=== PATIENT | male | born 1940 | race Caucasian/White ===

== ENCOUNTER → 2024-05-31 | Outpatient (CLI) | payer MEDICARE, SELFPAY ==
--- NOTE | 2024-05-31 14:00 | ECHOD_ITS ---
Reason For Study: CHF Procedure This was a 2D Doppler, Color Flow transthoracic echocardiogram. The study was technically difficult. Exam performed in department. Left Ventricle Normal LV size. Left ventricular systolic function is normal. The left ventricular ejection fraction is 60 %. Stage 1 diastolic dysfunction. No regional wall motion abnormalities noted. Right Ventricle Normal RV size. ICD or pacer leads identified within the right ventricle. Normal systolic function. Atria Normal left atrium. Normal right atrium. Mitral Valve Bileaflet diffuse mitral valve thickening. Mild-Moderate (1-2+) eccentric mitral valve insufficiency. Tricuspid Valve Normal tricuspid valve. Mild (1+) tricuspid valve insufficiency. Pulmonary artery systolic pressure is 26 mmHg. Aortic Valve Trisinus/trileaflet aortic valve. Pulmonic Valve Normal pulmonic valve. Great Vessels Normal aortic root. The pulmonary artery is normal size. Normal inferior vena cava. Pericardium/Pleural No pericardial effusion. MMode/2D Measurements & Calculations RVDd: 3.5 cm LVOT diam: 2.0 cm Ao root diam: 3.3 cm LVOT area: 3.0 cm2 LAV(MOD-bp): 51.1 ml SV(MOD-sp4): 69.9 ml LVAd ap4: 35.9 cm2 LAV(MOD-bp) Indexed: 25.7 ml/m2 LVLd ap4: 8.4 cm LAV(MOD-sp2): 44.2 ml EDV(MOD-sp4): 126.5 ml LAV(MOD-sp4): 46.9 ml EDV(sp4-el): 131.0 ml LVAs ap4: 21.4 cm2 LVLs ap4: 6.8 cm ESV(MOD-sp4): 56.6 ml ESV(sp4-el): 57.1 ml EF(MOD-sp4): 55.3 % EF(sp4-el): 56.4 % SV(sp4-el): 73.9 ml LA A4 area: 18.3 cm2 LA dimension(2D): 3.4 cm TAPSE: 2.0 cm RA A4 area: 16.9 cm2 Time Measurements MV dec time: 0.18 sec Doppler Measurements & Calculations MV E max driss: 70.8 cm/sec Lat Peak E' Driss: 10.0 cm/sec Med Peak E' Driss: 8.9 cm/sec MV A max driss: 71.7 cm/sec E/E' lat: 7.1 E/E' med: 8.0 MV E/A: 0.99 Ao V2 max: 175.6 cm/sec LV V1 max: 86.9 cm/sec SV(LVOT): 43.4 ml Ao max P.3 mmHg LV V1 max P.0 mmHg Ao V2 mean: 121.9 cm/sec LV V1 mean P.5 mmHg Ao mean P.8 mmHg LV V1 mean: 54.9 cm/sec Ao V2 VTI: 27.3 cm LV V1 VTI: 14.3 cm AV (velocity ratio): 0.52 JEANNINE(I,D): 1.6 cm2 JEANNINE(V,D): 1.5 cm2 PA V2 max: 107.9 cm/sec TR max driss: 239.2 cm/sec TR max P.9 mmHg ECHO/Echo Complete Interpretation Summary Normal LV size. Left ventricular systolic function is normal. The left ventricular ejection fraction is 60 %. Mild-Moderate (1-2+) eccentric mitral valve insufficiency. Stage 1 diastolic dysfunction. Ordering Physician: Jorge uLis Curtis Referring Physician: ELI ACOSTA Performed By: Alexa Geiger RDCS
== END | disposition home or self-care (01) ==
LOC: CVS 13:59
PROVIDERS: PCP Internal Medicine; Referring Provider Internal Medicine Cardiovascular Disease; Visit Provider Internal Medicine Cardiovascular Disease
DX: I35.0 Nonrheumatic aortic (valve) stenosis (principal); I42.0 Dilated cardiomyopathy
CPT/HCPCS: 93306

== ENCOUNTER 2024-08-31 12:56 | Emergency (ER) | payer MEDICARE, SELFPAY ==
[2024-08-31] VITALS (14 sets, daily range): BP systolic 86–122; BP diastolic 33–62; PULSE 63–98; RESP 10–21; TEMP 36.6–36.9; O2SAT 61–99; BMI 22.1
--- NOTE | 2024-08-31 13:18 | CT_ITS ---
STUDY: CT ABDOMEN AND PELVIS WITH CONTRAST REASON FOR EXAM: Male, 84 years old. LLQ pain N/V/D X1 WEEK RADIATION DOSAGE (If Supplied By Facility): CTDIvol = ( 18.74 ) mGy, DLP = ( 2063.90 ) mGycm TECHNIQUE: Transaxial images were obtained from the dome of the diaphragm to the symphysis pubis without oral contrast. ml of 100mL Isovue-300 contrast was administered. Sagittal and coronal images were reconstructed. Individualized dose optimization techniques were used for this CT. COMPARISON: None. FINDINGS: * The stomach is mildly to moderately distended with fluid and food contents. No thickening of the wall of the stomach is demonstrated. The oneal of the antrum are moderately thickened and edematous up to the duodenal junction a small intraluminal polyp is also seen in this region. No definite mass or enhancing process is visualized. Acute inflammation/gastritis is suspected, however malignancy is of concern and should be evaluated with consultation with gastroenterology. * A few scattered descending and sigmoid diverticula are present without evidence of acute diverticulitis. The remaining colonic loops are unremarkable. High position of the ileocecal junction is either developmental or related to prior resection. * The body and tail of the pancreas are absent either due to fatty atrophy/replacement or prior resection. The uncinate process and head of the pancreas is present and without evidence of a mass or acute pancreatitis. The duct is mildly dilated. * No abscess or free air is present * No visualized pneumatosis or portal venous gas * No demonstrated superior mesenteric artery thrombosis The visualized lung bases are unremarkable. The visualized portions of the heart are within normal limits. Normal liver. Normal gallbladder and extrahepatic biliary system. Normal spleen. Normal pancreas. Normal bilateral adrenal glands. There is mild cortical atrophy of the right kidney, consistent with chronic medical renal disease. There is moderate cortical atrophy of the left kidney, consistent with chronic medical renal disease. No hydronephrosis is present. Normal small intestine. There is non-visualization of the appendix. There is diffuse atherosclerotic calcification of the abdominal aorta with elongation and tortuosity, but without a demonstrated aneurysm. Normal inferior vena cava. Normal retroperitoneum. Normal urinary bladder. Mildly enlarged heterogeneous prostate gland without evidence of a definite mass by CT criteria. Correlate with PSA. Normal abdominal wall. There are diffuse degenerative changes of the visualized lumbar spine. CT/Abdomen/Pelvis W IV Cont ONLY IMPRESSION: 1. The stomach is mildly to moderately distended with fluid and food contents. No thickening of the wall of the stomach is demonstrated. The oneal of the antrum are moderately thickened and edematous up to the duodenal junction a small intraluminal polyp is also seen in this region. No definite mass or enhancing process is visualized. Acute inflammation/gastritis is suspected, however malignancy is of concern and should be evaluated with consultation with gastroenterology. 2. A few scattered descending and sigmoid diverticula are present without evidence of acute diverticulitis. Electronically Signed: Nima Adair MD at 16:21 EST ,
[2024-08-31] MEDS: 0.9% Normal Saline (1000mL) 1,000 ML 999 ML IV ×2 (13:27→15:52)
[2024-08-31] MEDS: Ondansetron 4 MG/2 ML Vial IV ×2 (13:27→20:49)
--- NOTE | 2024-08-31 13:32 | EX.ED.DYSGE1 ---
HPI <ALFREDO Azar - Last Filed: 08/31/24 19:13> History of Present Illness Chief Complaint: Nausea/Vomiting Narrative Narrative: Patient presenting today with nausea and vomiting he has had since 08/24/2024. He reports intermittent left sided abdominal pain. He has not had a bowel movement in the last 3 to 4 days, he is passing gas. He denies any history of bowel obstruction or previous abdominal surgeries. He does have a history of anemia that is currently being worked up by oncology/hematology. He has had to receive iron infusions in the past. He reports that he felt dizzy today, he does not describe this as a vertiginous dizziness but more so a lightheadedness. He denies fevers, chills, hematemesis, and urinary symptoms. [facility] <ALFREDO Azar - Last Filed: 08/31/24 19:13> [facility] Medical History Paroxysmal atrial flutter Generalized anxiety disorder Vitamin D deficiency Paroxysmal atrial fibrillation Mixed hyperlipidemia Dilated cardiomyopathy Iron deficiency anemia Home Medications ?Medication ?Instructions ?Recorded ?Last Taken ?Type ascorbic acid (vitamin C) 500 mg 500 mg PO DAILY 04/01/24 Unknown History tablet cholecalciferol (vitamin D3) 50 50 mcg PO DAILY 04/01/24 Unknown History mcg (2,000 unit) capsule multivitamin 1 tab PO DAILY 04/01/24 Unknown History pravastatin 20 mg tablet 20 mg PO QHS 04/01/24 Unknown History buspirone 10 mg tablet 10 mg PO BID 05/15/24 Unknown History furosemide 40 mg tablet (Lasix) 40 mg PO QAM #90 tabs 05/15/24 Unknown Rx lisinopril 5 mg tablet 5 mg PO QDAY #90 tabs 05/15/24 Unknown Rx mecobalamin (vitamin B12) 1,000 1,000 mcg PO QDAY 05/15/24 Unknown History mcg lozenges Allergy/AdvReac Type Severity Reaction Status Date / Time No Known Allergies Allergy Verified 08/31/24 12:57 Family History Brother Heart disease Father Heart disease Mother Heart disease Colon cancer CVA (cerebral vascular accident) Sister Heart disease Surgical History 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) Social History Smoking Status: Never smoker ROS <ALFREDO Azar - Last Filed: 08/31/24 19:13> ROS ED Constitutional Constitutional ED: Denies chills or fever(s) Cardiovascular Cardiovascular: Denies chest pain Respiratory/Chest Respiratory/Chest: Denies dyspnea Gastrointestinal Gastrointestinal: Reports abdominal pain, constipation, nausea and vomiting; Denies diarrhea Genitourinary Genitourinary ED: Denies dysuria, hematuria or urinary urgency Musculoskeletal Musculoskeletal: Denies arthralgias or myalgias Integumentary Denies rash Neurologic Neurologic: Denies weakness EXAM <ALFREDO Azar - Last Filed: 08/31/24 19:13> Physical Exam Const Vital Signs: 08/31/24 12:57 08/31/24 13:19 08/31/24 14:00 Temperature 97.9 F Temperature Source Temporal Pulse Rate 87 78 72 Respiratory Rate 18 20 H 21 H Blood Pressure 91/46 L 86/50 L 114/47 L Blood Pressure Mean 61 62 69 Pulse Ox 96 90 Oxygen Delivery Method Room Air Room Air Room Air Oxygen Flow Rate (L/min) 08/31/24 14:57 08/31/24 14:57 08/31/24 15:00 Temperature Temperature Source Pulse Rate 63 Respiratory Rate 19 H Blood Pressure 122/54 H Blood Pressure Mean 76 Pulse Ox 82 96 98 Oxygen Delivery Method Room Air Nasal Cannula Nasal Cannula Oxygen Flow Rate (L/min) 2 2 08/31/24 16:00 08/31/24 16:44 08/31/24 17:00 Temperature 98.5 F Temperature Source Pulse Rate 71 71 68 Respiratory Rate 10 L 19 H 15 Blood Pressure 113/54 L 109/62 111/52 L Blood Pressure Mean 73 77 71 Pulse Ox 99 99 96 Oxygen Delivery Method Nasal Cannula Nasal Cannula Oxygen Flow Rate (L/min) 2 2 08/31/24 18:00 08/31/24 19:00 Temperature Temperature Source Pulse Rate 68 70 Respiratory Rate 15 17 Blood Pressure 113/33 L 107/50 L Blood Pressure Mean 59 69 Pulse Ox 96 97 Oxygen Delivery Method Nasal Cannula Room Air Oxygen Flow Rate (L/min) 2 Positive well nourished, well developed and no apparent distress General Appearance ED: well developed HEENT Reports normocephalic, head/scalp atraumatic and dry mucous membranes Mouth ED: Yes dry mucous membranes Mouth: dry mucous membranes Eyes PERRL and EOMs intact bilaterally Neck full ROM and supple Chest Wall inspection of chest normal Resp normal respiratory effort and clear to auscultation bilaterally Cardio regular rate and regular rhythm GI soft to palpation, non-tender, non-distended and no masses Back/Spine normal ROM and normal to inspection Extremity normal to inspection and full ROM Neuro oriented x3, CN's II-XII intact bilaterally, moves all extremities, no focal motor deficits and no sensory deficits noted Sensorium / Orientation: awake and alert Psych mental status grossly normal and thought process normal Skin no rashes or lesions noted and no wounds <Dr. Cheyanne Haddad, DO - Last Filed: 08/31/24 16:28> Physical Exam Const Vital Signs: 08/31/24 12:57 08/31/24 13:19 08/31/24 14:00 Temperature 97.9 F Temperature Source Temporal Pulse Rate 87 78 72 Respiratory Rate 18 20 H 21 H Blood Pressure 91/46 L 86/50 L 114/47 L Blood Pressure Mean 61 62 69 Pulse Ox 96 90 Oxygen Delivery Method Room Air Room Air Room Air Oxygen Flow Rate (L/min) 08/31/24 14:57 08/31/24 14:57 08/31/24 15:00 Temperature Temperature Source Pulse Rate 63 Respiratory Rate 19 H Blood Pressure 122/54 H Blood Pressure Mean 76 Pulse Ox 82 96 98 Oxygen Delivery Method Room Air Nasal Cannula Nasal Cannula Oxygen Flow Rate (L/min) 2 2 08/31/24 16:00 08/31/24 16:44 08/31/24 17:00 Temperature 98.5 F Temperature Source Pulse Rate 71 71 68 Respiratory Rate 10 L 19 H 15 Blood Pressure 113/54 L 109/62 111/52 L Blood Pressure Mean 73 77 71 Pulse Ox 99 99 96 Oxygen Delivery Method Nasal Cannula Nasal Cannula Oxygen Flow Rate (L/min) 2 2 08/31/24 18:00 08/31/24 19:00 Temperature Temperature Source Pulse Rate 68 70 Respiratory Rate 15 17 Blood Pressure 113/33 L 107/50 L Blood Pressure Mean 59 69 Pulse Ox 96 97 Oxygen Delivery Method Nasal Cannula Room Air Oxygen Flow Rate (L/min) 2 [facility] <ALFREDO Azar - Last Filed: 08/31/24 19:13> [facility] Narrative Medical decision making narrative: Patient presenting due to abdominal pain, nausea, vomiting that has been going on intermittently for about a week. He does appear dry, his pressure is low at 86/50. He has felt lightheaded today, likely because he is hypotensive. Patient given 2 L IV fluids. Labs are obtained. His H&H is 8.5 and 25.8, Hemoccult is negative. He does have anemia that is being worked up by oncology. His potassium is 3.2, BUN 23, creatinine 1.34, unsure if this is baseline or not, lactic acid 2.7, bilirubin 1.8. No UTI. Patient did become slightly hypoxic here and was placed on supplemental O2, chest x-ray does not show any infiltrate or acute findings. He is not complaining of any chest pain or shortness of breath. CT scan of the abdomen and pelvis shows a distended stomach, inflammation/gastritis suspected but mass cannot be ruled out, radiologist recommends GI consult. Patient required IV Zofran and IV Reglan and additional IV fluids. His blood pressure has improved to 113/54. Given his dehydration, hypotension, nausea/vomiting, and abnormal CT scan, I do feel he would benefit from admission to the hospital. After speaking with the hospitalist, he recommended transfer to a tertiary center given concerns for mass on the CT and given the fact that we do not have GI here this weekend. I did speak with Dr. Garnica who recommended placing an NG tube and also agreed that patient would need transfer for his gastric outlet obstruction. NG tube was placed by the nurse, placement was confirmed on KUB. He immediately had about 600 cc of fluid come out. I did speak with the hospitalist at [facility], Dr. Campbell, he is accepting of the transfer. Patient will be transferred in stable condition. Patient seen and evaluated with LENARD. I personally interviewed and examined the patient. I was involved in all aspects of patient's orders, interpretation of results, and treatment. patient presents with nausea and vomiting that started 4 days prior to and that he ate a big meal on and then has been vomiting since . He also describes abdominal pain. Denies diarrhea and states he has not had a bowel movement about 3 days. It is not unusual for him to go this long without a bowel movement. Patient denies any blood in his stool or black tarry stool. He has history of anemia that is currently being worked up. Patient not on blood thinners currently. Patient denies chest pain or shortness of breath. He denies sick contacts. Does feel somewhat lightheaded and dizzy with standing. Patient had been on iron infusions but then the insurance would not pay for them to receive them at [facility] so he has to have his care transferred to our hospital. HEENT-PERRLA, EOMI Lungs-good aeration bilaterally. Few rhonchi and rales in both bases. No accessory muscle use or retractions. Heart-regular with occasional ectopy. 2 out of 6 systolic ejection murmur. Abdomen-soft and minimally tender diffusely. There is no rebound, rigidity, peritoneal signs. No mass palpated. Extremities-intact x 4 with no significant edema. Patient presents with vomiting and abdominal pain. Clinically looks well but somewhat hypotensive. Will give IV fluids. Will obtain lab workup including lactate. Will obtain urinalysis. Will obtain imaging with CT scan of the abdomen pelvis to evaluate further. Concern for possibility of bowel obstruction versus viral gastroenteritis and dehydration versus other etiology. He has not had any other abdominal surgeries.CBC with open showed white count 7.1 with hemoglobin 8.5 and platelet count of 189. Chemistries unremarkable. Lactate elevated 2.7. LFTs unremarkable. Lipase was normal 81. Urinalysis showed 5 ketones but no signs of infection. 1 department he received a liter of the same fluid bolus and his blood pressure did respond to this. He was marginally hypoxic with O2 sats of 88 to 90% on room air however when he fell asleep his O2 sat went down to 82%. CT scan of the abdomen pelvis shows dilated stomach with a polyp in the duodenum and thickening of the duodenum. Malignancy cannot be excluded and recommended GI evaluation. 1 view chest x-ray obtained interpreted by myself is no evidence of infiltrate or acute disease process. This point patient will be admitted to hospitalist for further evaluation and treatment. I did order Protonix IV and Reglan IV. Lab Data Attestation: I reviewed the patient's lab results. Lab results narrative: Hemoglobin 8.5, hematocrit 25.8, potassium 3.2, BUN 23, creatinine 1.34, bilirubin 1.8 Labs: Laboratory Results - last 24 hr 08/31/24 08/31/24 08/31/24 13:11 13:27 15:27 WBC 7.1 RBC 2.45 L Hgb 8.5 L Hct 25.8 L MCV 105.3 H MCH 34.7 H MCHC 32.9 RDW Std Deviation 60.7 H RDW Coeff of Beau 15.6 H Plt Count 189 MPV 11.1 Immature Gran % (Auto) 0.700 Neut % (Auto) 71.6 H Lymph % (Auto) 20.8 [place] % (Auto) 6.8 Eos % (Auto) 0.0 Baso % (Auto) 0.1 Absolute Neuts (auto) 5.1 Absolute Lymphs (auto) 1.47 Nucleated RBC % 0.3 Sodium 138 Potassium 3.2 L Chloride 94 L Carbon Dioxide 33.0 H Anion Gap 11 BUN 23 H Creatinine 1.34 H Estim Creat Clear Calc 41.47 Est GFR (MDRD) Af Amer 65 Est GFR (MDRD) Non-Af 54 L BUN/Creatinine Ratio 17.2 Glucose 155 H Lactic Acid 2.7 H* Calcium 11.0 H Total Bilirubin 1.80 H AST 21 ALT 10 L Alkaline Phosphatase 63 Total Protein 7.7 Albumin 3.5 Globulin 4.2 Albumin/Globulin Ratio 0.8 L Lipase 81 H Urine Color Straw Urine Clarity Clear Urine pH 6.5 Ur Specific [place] 1.010 Urine Protein 15 H Urine Glucose (UA) Normal Urine Ketones 5 H Urine Occult Blood 10 H Urine Nitrite Negative Urine Bilirubin Negative Urine Urobilinogen 1 H Ur Leukocyte Esterase 25 H Urine RBC 5-10 SEEN Urine WBC 5-10 SEEN Ur Squamous Epith Cells 0 SEEN Urine Bacteria 1+ Hyaline Casts 0-5 SEEN Urine Mucus 0 SEEN 08/31/24 17:37 WBC RBC Hgb Hct MCV MCH MCHC RDW Std Deviation RDW Coeff of Beau Plt Count MPV Immature Gran % (Auto) Neut % (Auto) Lymph % (Auto) [place] % (Auto) Eos % (Auto) Baso % (Auto) Absolute Neuts (auto) Absolute Lymphs (auto) Nucleated RBC % Sodium Potassium Chloride Carbon Dioxide Anion Gap BUN Creatinine Estim Creat Clear Calc Est GFR (MDRD) Af Amer Est GFR (MDRD) Non-Af BUN/Creatinine Ratio Glucose Lactic Acid 1.2 Calcium Total Bilirubin AST ALT Alkaline Phosphatase Total Protein Albumin Globulin Albumin/Globulin Ratio Lipase Urine Color Urine Clarity Urine pH Ur Specific [place] Urine Protein Urine Glucose (UA) Urine Ketones Urine Occult Blood Urine Nitrite Urine Bilirubin Urine Urobilinogen Ur Leukocyte Esterase Urine RBC Urine WBC Ur Squamous Epith Cells Urine Bacteria Hyaline Casts Urine Mucus Radiography X-Ray: Read by ED Physician Diagnostic Testing: Clinical Impression(s) from Imaging Studies Abdomen/Pelvis CT 08/31/24 13:18 IMPRESSION: 1. The stomach is mildly to moderately distended with fluid and food contents. No thickening of the wall of the stomach is demonstrated. The oneal of the antrum are moderately thickened and edematous up to the duodenal junction a small intraluminal polyp is also seen in this region. No definite mass or enhancing process is visualized. Acute inflammation/gastritis is suspected, however malignancy is of concern and should be evaluated with consultation with gastroenterology. 2. A few scattered descending and sigmoid diverticula are present without evidence of acute diverticulitis. Electronically Signed: Nima Adair MD at 16:21 EST , Chest X-Ray 08/31/24 13:50 IMPRESSION: COPD Electronically Signed: Nima Adair MD at 16:24 EST , <Dr. Cheyanne Haddad, DO - Last Filed: 08/31/24 16:28> [facility] Narrative Medical decision making narrative: Patient presenting due to abdominal pain, nausea, vomiting that has been going on intermittently for about a week. He does appear dry, his pressure is low at 86/50. He has felt lightheaded today, likely because he is hypotensive. Patient seen and evaluated with LENARD. I personally interviewed and examined the patient. I was involved in all aspects of patient's orders, interpretation of results, and treatment. patient presents with nausea and vomiting that started 4 days prior to and that he ate a big meal on and then has been vomiting since . He also describes abdominal pain. Denies diarrhea and states he has not had a bowel movement about 3 days. It is not unusual for him to go this long without a bowel movement. Patient denies any blood in his stool or black tarry stool. He has history of anemia that is currently being worked up. Patient not on blood thinners currently. Patient denies chest pain or shortness of breath. He denies sick contacts. Does feel somewhat lightheaded and dizzy with standing. Patient had been on iron infusions but then the insurance would not pay for them to receive them at [facility] so he has to have his care transferred to our hospital. HEENT-PERRLA, EOMI Lungs-good aeration bilaterally. Few rhonchi and rales in both bases. No accessory muscle use or retractions. Heart-regular with occasional ectopy. 2 out of 6 systolic ejection murmur. Abdomen-soft and minimally tender diffusely. There is no rebound, rigidity, peritoneal signs. No mass palpated. Extremities-intact x 4 with no significant edema. Patient presents with vomiting and abdominal pain. Clinically looks well but somewhat hypotensive. Will give IV fluids. Will obtain lab workup including lactate. Will obtain urinalysis. Will obtain imaging with CT scan of the abdomen pelvis to evaluate further. Concern for possibility of bowel obstruction versus viral gastroenteritis and dehydration versus other etiology. He has not had any other abdominal surgeries. CBC with open showed white count 7.1 with hemoglobin 8.5 and platelet count of 189. Chemistries unremarkable. Lactate elevated 2.7. LFTs unremarkable. Lipase was normal 81. Urinalysis showed 5 ketones but no signs of infection. 1 department he received a liter of the same fluid bolus and his blood pressure did respond to this. He was marginally hypoxic with O2 sats of 88 to 90% on room air however when he fell asleep his O2 sat went down to 82%. CT scan of the abdomen pelvis shows dilated stomach with a polyp in the duodenum and thickening of the duodenum. Malignancy cannot be excluded and recommended GI evaluation. 1 view chest x-ray obtained interpreted by myself is no evidence of infiltrate or acute disease process. This point patient will be admitted to hospitalist for further evaluation and treatment. I did order Protonix IV and Reglan IV. Lab Data Labs: Laboratory Results - last 24 hr 08/31/24 08/31/24 08/31/24 13:11 13:27 15:27 WBC 7.1 RBC 2.45 L Hgb 8.5 L Hct 25.8 L MCV 105.3 H MCH 34.7 H MCHC 32.9 RDW Std Deviation 60.7 H RDW Coeff of Beau 15.6 H Plt Count 189 MPV 11.1 Immature Gran % (Auto) 0.700 Neut % (Auto) 71.6 H Lymph % (Auto) 20.8 [place] % (Auto) 6.8 Eos % (Auto) 0.0 Baso % (Auto) 0.1 Absolute Neuts (auto) 5.1 Absolute Lymphs (auto) 1.47 Nucleated RBC % 0.3 Sodium 138 Potassium 3.2 L Chloride 94 L Carbon Dioxide 33.0 H Anion Gap 11 BUN 23 H Creatinine 1.34 H Estim Creat Clear Calc 41.47 Est GFR (MDRD) Af Amer 65 Est GFR (MDRD) Non-Af 54 L BUN/Creatinine Ratio 17.2 Glucose 155 H Lactic Acid 2.7 H* Calcium 11.0 H Total Bilirubin 1.80 H AST 21 ALT 10 L Alkaline Phosphatase 63 Total Protein 7.7 Albumin 3.5 Globulin 4.2 Albumin/Globulin Ratio 0.8 L Lipase 81 H Urine Color Straw Urine Clarity Clear Urine pH 6.5 Ur Specific [place] 1.010 Urine Protein 15 H Urine Glucose (UA) Normal Urine Ketones 5 H Urine Occult Blood 10 H Urine Nitrite Negative Urine Bilirubin Negative Urine Urobilinogen 1 H Ur Leukocyte Esterase 25 H Urine RBC 5-10 SEEN Urine WBC 5-10 SEEN Ur Squamous Epith Cells 0 SEEN Urine Bacteria 1+ Hyaline Casts 0-5 SEEN Urine Mucus 0 SEEN 08/31/24 17:37 WBC RBC Hgb Hct MCV MCH MCHC RDW Std Deviation RDW Coeff of Beau Plt Count MPV Immature Gran % (Auto) Neut % (Auto) Lymph % (Auto) [place] % (Auto) Eos % (Auto) Baso % (Auto) Absolute Neuts (auto) Absolute Lymphs (auto) Nucleated RBC % Sodium Potassium Chloride Carbon Dioxide Anion Gap BUN Creatinine Estim Creat Clear Calc Est GFR (MDRD) Af Amer Est GFR (MDRD) Non-Af BUN/Creatinine Ratio Glucose Lactic Acid 1.2 Calcium Total Bilirubin AST ALT Alkaline Phosphatase Total Protein Albumin Globulin Albumin/Globulin Ratio Lipase Urine Color Urine Clarity Urine pH Ur Specific [place] Urine Protein Urine Glucose (UA) Urine Ketones Urine Occult Blood Urine Nitrite Urine Bilirubin Urine Urobilinogen Ur Leukocyte Esterase Urine RBC Urine WBC Ur Squamous Epith Cells Urine Bacteria Hyaline Casts Urine Mucus Radiography Diagnostic Testing: Clinical Impression(s) from Imaging Studies Abdomen/Pelvis CT 08/31/24 13:18 IMPRESSION: 1. The stomach is mildly to moderately distended with fluid and food contents. No thickening of the wall of the stomach is demonstrated. The oneal of the antrum are moderately thickened and edematous up to the duodenal junction a small intraluminal polyp is also seen in this region. No definite mass or enhancing process is visualized. Acute inflammation/gastritis is suspected, however malignancy is of concern and should be evaluated with consultation with gastroenterology. 2. A few scattered descending and sigmoid diverticula are present without evidence of acute diverticulitis. Electronically Signed: Nima Aadir MD at 16:21 EST , Chest X-Ray 08/31/24 13:50 IMPRESSION: COPD Electronically Signed: Nima Adair MD at 16:24 EST , Discharge Plan Triage Chief Complaint: Nausea/Vomiting ED Midlevel Provider: Sophy Avery ED Provider: Cheyanne Haddad Dx/Rx/DC Orders Clinical Impression: Vomiting, Abdominal pain, Gastritis, Dehydration, Anemia Prescriptions: No Action multivitamin Tablet 1 tab PO DAILY ascorbic acid (vitamin C) 500 mg tablet 500 mg PO DAILY cholecalciferol (vitamin D3) 50 mcg (2,000 unit) capsule 50 mcg PO DAILY pravastatin 20 mg tablet 20 mg PO QHS buspirone 10 mg tablet 10 mg PO BID Rx Instructions: 1/2 tab in AM and 1 tab in PM mecobalamin (vitamin B12) 1,000 mcg lozenge 1,000 mcg PO QDAY Rx Instructions: allow to dissolve in mouth OR may chew lightly before swallowing lisinopril 5 mg tablet 5 mg PO QDAY Qty: 90 3RF furosemide [Lasix] 40 mg tablet 40 mg PO QAM Qty: 90 3RF Primary Care Provider: Jaimie Phelps Referrals: Jaimie Phelps DO [Primary Care Provider] - Print Language: Greek Disposition Disposition: Acute Care Hospital Discharge Location: [facility]
[2024-08-31 13:35] LABS: Absolute Lymphocyte Count 1.47 X10^3/uL (0.83-4.51); Absolute Neutrophil Count 5.1 X10^3/uL (2.0-7.7); Basophil# 0.01 X10^3/uL; Basophil% 0.1 % (0-1); Hematocrit 25.8 % (40-54); Hemoglobin 8.5 g/dL (13.0-16.5); Lymphocyte # 1.47 X10^3/ul (0.83-4.51); Lymphocyte % 20.8 % (19-41); Mean Corp Hgb Conc 32.9 g/dL (32-36); Mean Corpuscular Hgb 34.7 pg (27.0-32.0); Mean Corpuscular Volume 105.3 fL (80-94); Mean Platelet Vol. 11.1 fl (6.2-12.0); Monocyte# 0.48 X10^3/uL; Monocyte% 6.8 % (0-10); NRBC Flagged by Analyzer 0.3 % (0-5); Neutrophil # 5.07 X10^3/uL (2.7-7.7); Neutrophil % 71.6 % (47-70); Platelet Count 189 K/mm3 (150-450); RBC Distribution Width CV 15.6 % (11.6-14.6); RBC Distribution Width SD 60.7 fl (35.1-43.9); Red Blood Count 2.45 M/mm3 (4.6-6.2); White Blood Count 7.1 K/mm3 (4.4-11.0)
--- NOTE | 2024-08-31 13:50 | RAD_ITS ---
STUDY: X-RAY CHEST REASON FOR EXAM: Male, 84 years old. hypoxia TECHNIQUE: PA and lateral views of the chest. COMPARISON: None. FINDINGS: Stable left chest cardiac device and leads. No demonstrated consolidation. Nipple shadow seen bilaterally regions. There is hyperinflation of the lungs consistent with chronic obstructive lung disease (COPD). There is no demonstrated pleural abnormality. Normal size heart. Normal mediastinum and myron. Normal visualized pulmonary arteries. There is atherosclerotic calcification of the aortic arch with tortuosity. There are diffuse degenerative changes of the visualized thoracic spine. There is degenerative osteoarthritis of the bilateral shoulders. There is no demonstrated abnormality of the visualized soft tissue structures of the upper abdomen. RAD/Chest PA and Lateral IMPRESSION: COPD Electronically Signed: Nima Adair MD at 16:24 EST ,
[2024-08-31 13:59] LABS: ALB/GLOB Ratio 0.8 RATIO (0.9-2.4); AST(SGOT) 21 U/L (15-37); Alanine Aminotransfer ALT/SGPT 10 U/L (16-61); Albumin, Serum 3.5 g/dL (3.2-5.0); Alkaline Phosphatase 63 U/L (45-117); Anion Gap 11 (5-15); BUN 23 mg/dL (7-18); BUN/Creat Ratio 17.2 RATIO (10-20); Chloride 94 mmol/L (98-107); Creatinine, Serum 1.34 mg/dL (0.70-1.30); EST Glomerular Filtration Rate 54 mL/min (>60); Est Glom Filt Rate - Afr Amer 65 mL/min (>60); Estimated Creatinine Clearance 41.47 ml/min; Globulin 4.2 g/dL (2.2-4.2); Glucose 155 mg/dL (74-106); Lipase 81 U/L (13-75); Potassium 3.2 mmol/L (3.5-5.1); Protein, Total 7.7 g/dL (6.4-8.2); Sodium Level 138 mmol/L (136-145)
[2024-08-31 14:14] LABS: Lactic Acid 2.7 mmol/L (0.4-1.9)
--- NOTE | 2024-08-31 14:15 | ED.RN ---
LACTIC 2.7. AWARE
[2024-08-31 15:34] LABS: Mucous, Urine 0 SEEN /hpf (<or=2+); Squamous Epithelial Cells - UA 0 SEEN /hpf (0-5)
[2024-08-31 15:44] LABS: Color, Urine Straw (Yellow); Glucose, Dipstick Normal (Normal); Ketone-Dipstick 5 mg/dl (Negative); Leukocyte Esterase-Dipstick 25 /ul (Negative); Nitrite-Dipstick Negative (Negative); Occult Blood-Urine 10 /ul (Negative); Protein-Dipstick 15 mg/dl (Negative); Urine Bilirubin Dipstick Negative (Negative); Urine Clarity Clear (Clear); Urine Urobilinogen 1 mg/dl (Normal); Urine pH 6.5 (5.0 - 8.0)
[2024-08-31 16:04] LABS: Bacteria 1+ /hpf (None Seen); Hyaline Cast 0-5 SEEN /lpf (0-5); Red Blood Cells-Urine 5-10 SEEN /hpf (0-5); White Blood Cells 5-10 SEEN /hpf (0-5)
[2024-08-31] MEDS: Metoclopramide 10 MG/2 ML Vial IV (16:05)
[2024-08-31] MEDS: Pantoprazole Sodium 40 MG in 0.9% Normal Saline (100mL MB+) 100 ML 330 MG IV (16:44)
[2024-08-31 17:29] LABS: Reflex Lactate? Y
[2024-08-31] MEDS: Oxymetazoline 0.05% 1 SPRAY SPRAY.BTL 2 SPRAY NASAL (17:39)
--- NOTE | 2024-08-31 18:10 | RAD_ITS ---
STUDY: X-RAY - ABDOMEN/PELVIS REASON FOR EXAM: Male, 84 years old. NG Insertion TECHNIQUE: Single AP view of the abdomen / pelvis. COMPARISON: Chest x-ray dated August 31, 2024 FINDINGS: Coned-down view of the chest and upper abdomen Normal visualized lung bases. There is an unremarkable bowel gas pattern. The newly placed NG tube terminates in the mid body of the stomach. Normal soft tissue structures. There are diffuse degenerative changes of the visualized lumbar spine. RAD/Abdomen Single View (Portable) IMPRESSION: The newly placed NG tube terminates in the mid body of the stomach. Electronically Signed: Nima Adair MD at 20:53 EST ,
--- NOTE | 2024-08-31 18:22 | ED.RN ---
ACCEPTED AT [facility] @ [id number] WILL CALL BACK WITH A BED
[2024-08-31 18:24] LABS: Lactic Acid 1.2 mmol/L (0.4-1.9)
--- NOTE | 2024-08-31 19:10 | ED.RN ---
PT ACCEPTED AT [place] [id number] BED [id number]
[2024-08-31] MEDS: 0.9% Normal Saline (1000mL) 1,000 ML 150 ML IV (20:49)
[2024-08-31] MEDS: Morphine 2 MG/ML Syringe IV (20:49)
[2024-09-01] VITALS: BP 104/50; PULSE 65; RESP 17; O2SAT 97
[2024-09-01 01:00] VITALS: BP 103/51; PULSE 71; RESP 20; TEMP 36.5; O2SAT 98
[2024-09-01 02:00] VITALS: BP 101/51; PULSE 62; RESP 15; O2SAT 99
== END 2024-09-01 02:24 | disposition short-term general hospital (02) ==
PROVIDERS: Physician Assistant; Emergency Provider Emergency Medicine; PCP Internal Medicine; Visit Provider Emergency Medicine
DX: K31.1 Adult hypertrophic pyloric stenosis (principal); I48.0 Paroxysmal atrial fibrillation; I42.0 Dilated cardiomyopathy; K29.70 Gastritis, unspecified, without bleeding; R11.2 Nausea with vomiting, unspecified; R09.02 Hypoxemia; E86.0 Dehydration; K31.7 Polyp of stomach and duodenum; K57.30 Diverticulosis of large intestine without perforation or abscess without bleeding; I95.9 Hypotension, unspecified; R01.1 Cardiac murmur, unspecified; F41.1 Generalized anxiety disorder; E55.9 Vitamin D deficiency, unspecified; E78.2 Mixed hyperlipidemia; D50.9 Iron deficiency anemia, unspecified; Z95.0 Presence of cardiac pacemaker; Z79.899 Other long term (current) drug therapy
CPT/HCPCS: 71046; 74018; 74177; 80053; 81001; 82274; 83605; 83690; 85025; 96361; 96365; 96375; 96376; 99285; Q9967; A4216; J2405